=== PATIENT | female | born 1950 | race Caucasian/White ===

== ENCOUNTER 2018-06-10 10:52 | Emergency (ER) | payer OTHER, MEDICAID ==
[~2018-06-10] VITALS: Ht 165.1 cm; Wt 89.8 kg
[~2018-06-10 10:52] MED LIST: ATIVAN2 MG PO; FLOVENT HF0.044 MG/1 INH; PAXIL20 MG PO; VENTOLIN H0.09 MG/A1 INH
[2018-06-10 11:02] VITALS: Ht 165.1 cm; Wt 89.8 kg
[2018-06-10 12:07] VITALS: BP 112/77
== END 2018-06-10 12:07 | disposition home or self-care (01) ==
LOC: ED 10:52
DX: F41.9 Anxiety disorder, unspecified (principal); I10 Essential (primary) hypertension; J44.9 Chronic obstructive pulmonary disease, unspecified; G40.909 Epilepsy, unspecified, not intractable, without status epilepticus; Z88.2 Allergy status to sulfonamides